=== PATIENT | female | born 2000 | race Caucasian/White ===

== ENCOUNTER 2021-05-11 21:04 | Emergency (ER) | payer BC ==
[2021-05-11] MEDS ORDERED: Metoclopramide HCl 10 MG/2 ML VIAL ONE (22:44)
[2021-05-11] MEDS ORDERED: Ketorolac Tromethamine 30 MG/ML VIAL ONE (22:44)
[2021-05-11] MEDS ORDERED: diphenhydrAMINE 50 MG/ML VIAL ONE (22:44)
== END 2021-05-11 23:40 | disposition home or self-care (01) ==
LOC: BURERS 21:04
DX: G43.909 Migraine, unspecified, not intractable, without status migrainosus (principal)
CPT/HCPCS: 96374; 96375; J1200; J1885; J2765